=== PATIENT | female | born 1975 | race Asian ===

== ENCOUNTER 2017-04-17 17:35 | Emergency (ER) | payer OTHER ==
[~2017-04-17] VITALS: Ht 162.6 cm; Wt 66.5 kg
[2017-04-17] MEDS ORDERED: SODIUM CHLORIDE FLUSH 10ML SYR IVF ONE (18:00)
[2017-04-17] MEDS ORDERED: SODIUM CHLORIDE 0.9% 1,000ML IVBOLUS ONE (18:00)
[2017-04-17] MEDS ORDERED: ONDANSETRON 2MG/ML, 2ML IVPush ONE (18:00)
[2017-04-17] MEDS ORDERED: FAMOTIDINE 20 MG/2 ML IVP ONE (18:00)
[2017-04-17 18:08] LABS: HEMATOCRIT 37.4 % (34.6-47.8); WHITE BLOOD COUNT 9.5 x10^3/uL (3.4-10)
[2017-04-17] MEDS ORDERED: MECLIZINE CHEWABLE 25 MG TAB ONE (18:12)
[2017-04-17] MEDS ORDERED: FAMOTIDINE 20 MG/2 ML ONE (18:13)
[2017-04-17] MEDS ORDERED: MAALOX/HYOSCYAMINE/LIDOCAINE 45 ML BTL ONE (18:13)
[2017-04-17] MEDS ORDERED: ONDANSETRON 2MG/ML, 2ML ONE (18:13)
[2017-04-17 18:19] LABS: ASPARTATE AMINO TRANSFERASE 5 U/L (15-37); BLOOD UREA NITROGEN 6 mg/dL (7-18)
[2017-04-17] MEDS ORDERED: METF10002 PO (18:30)
[2017-04-17] MEDS ORDERED: MAALOX/HYOSCYAMINE/LIDOCAINE 45 ML BTL PO ONE (18:30)
[2017-04-17] MEDS ORDERED: MECLIZINE CHEWABLE 25 MG TAB PO ONE (18:30)
[2017-04-17 18:56] LABS: IS PT STATUS REG ER OR PRE ER? YES
[2017-04-17 20:01] VITALS: BP 121/64
== END 2017-04-17 20:07 | disposition home or self-care (01) ==
LOC: ED 20:01
DX: K29.00 Acute gastritis without bleeding (principal); K21.9 Gastro-esophageal reflux disease without esophagitis; E11.9 Type 2 diabetes mellitus without complications
CPT/HCPCS: 36415; 71010; 76700; 80053; 81003; 83690; 84484; 84703; 85025; 93005; 96361; 96374; 96375; 99285; J2405; J7030; S0028

== ENCOUNTER 2020-03-30 12:55 | Emergency (ER) | payer SELFPAY ==
[~2020-03-30] VITALS: Ht 162.6 cm; Wt 59.9 kg
[~2020-03-30 12:55] MED LIST: METF10007 PO
--- NOTE | 2020-03-30 13:41 | NUR ---
DIZZINESS, WORSE WHEN STANDING. "HEAVINESS" IN SHOULDERS. EPIGASTRIC PAIN, DECREASED APPETITE X2 DAYS. 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 REPORTS NASEA/EPIGASTRIC PAIN
[2020-03-30 13:48] LABS: BASOPHILS % (AUTO) 1 % (0-1); EOSINOPHILS % (AUTO) 0 % (1-7); LYMPHOCYTES % (AUTO) 26 % (22-44); MEAN CORPUSCULAR HEMOGLOBIN 18.9 pg (27.0-34.8); MEAN PLATELET VOLUME 8.6 fL (7.4-10.4); MONOCYTES % (AUTO) 7 % (2-9); NEUTROPHILS % (AUTO) 67 % (42-75); PLATELET COUNT 292 x10^3/uL (130-400); RED BLOOD COUNT 4.98 x10^6/uL (3.82-5.3); RED CELL DISTRIBUTION WIDTH 19.7 % (9.6-15.2)
[2020-03-30 13:52] LABS: ALANINE AMINOTRANSFERASE 10 U/L (12-78); ALBUMIN 3.3 g/dL (3.4-5.0); ANION GAP 10 mmol/L (5-15); CALCIUM 8.7 mg/dL (8.5-10.1); CHLORIDE 103 mmol/L (98-107); CREATININE 0.73 mg/dL (0.55-1.02)
[2020-03-30 13:55] LABS: MICROSCOPIC AUTO
[2020-03-30 13:56] LABS: ALKALINE PHOSPHATASE 70 U/L (45-117); BILIRUBIN,TOTAL 0.2 mg/dL (0.2-1.0); TROPONIN I < 0.015 ng/mL (0.000-0.045)
[2020-03-30] MEDS ORDERED: MECLIZINE CHEWABLE 25 MG TAB PO ONE (14:00)
[2020-03-30] MEDS ORDERED: SODIUM CHLORIDE 0.9% 1,000ML IVBOLUS ONE (14:00)
[2020-03-30] MEDS ORDERED: ONDANSETRON 2MG/ML, 2ML IVPush ONE (14:00)
[2020-03-30 14:11] LABS: MEAN CORPUSCULAR HGB CONC 29.9 g/dL (32.4-35.8)
[2020-03-30 14:13] LABS: MD MORPH REVIEW ONLY
[2020-03-30 14:15] LABS: ANISOCYTOSIS 1+; MICROCYTOSIS 2+; OVALOCYTES 1+
[2020-03-30 14:16] LABS: <PLATELET ESTIMATE> ADEQUATE; HYPOCHROMIA 1+; LARGE PLATELETS 1+
[2020-03-30] MEDS ORDERED: ONDANSETRON 2MG/ML, 2ML ONE (14:21)
[2020-03-30] MEDS ORDERED: MECLIZINE CHEWABLE 25 MG TAB ONE (14:21)
--- NOTE | 2020-03-30 14:49 | NUR ---
IV ATTEMPTS x 2 UNSUCCESSFUL. SECOND RN REQUESTED FOR ASSISTANCE. PT TOLERATED WELL. DENIES ANY NEEDS AT THIS TIME, CALL LIGHT IN REACH.
[2020-03-30 15:52] VITALS: BP 100/64
== END 2020-03-30 16:52 | disposition home or self-care (01) ==
LOC: ED 16:15
DX: R42 Dizziness and giddiness (principal); R10.13 Epigastric pain; R11.0 Nausea; R07.9 Chest pain, unspecified; R94.31 Abnormal electrocardiogram [ECG] [EKG]; E11.9 Type 2 diabetes mellitus without complications; K21.9 Gastro-esophageal reflux disease without esophagitis
CPT/HCPCS: 36415; 71045; 80053; 81001; 82962; 83880; 84484; 85025; 93005; 96361; 96374; 99285; J2405; J7030